=== PATIENT | female | born 1940 | race Caucasian/White ===

== ENCOUNTER → 2023-11-11 10:05 | Outpatient (REF) | payer MEDICARE, OTHER, SELFPAY | LOC: RAD 10:05 | PROVIDERS: ATTENDING PHYSICIAN Family Medicine | DX: M25.551 Pain in right hip (principal) | CPT/HCPCS: 73502 ==

== ENCOUNTER → 2023-11-16 13:24 | Outpatient (REF) | payer MEDICARE, OTHER, SELFPAY | LOC: RAD 13:24 | PROVIDERS: ATTENDING PHYSICIAN Family Medicine | DX: M85.88 Other specified disorders of bone density and structure, other site (principal); S62.101D Fracture of unspecified carpal bone, right wrist, subsequent encounter for fracture with routine healing | CPT/HCPCS: 77080 ==

== ENCOUNTER → 2024-07-17 08:06 | Outpatient (REF) | payer MEDICARE, OTHER, SELFPAY | LOC: RAD 08:06 | PROVIDERS: ATTENDING PHYSICIAN Internal Medicine Rheumatology; FAMILY PHYSICIAN Family Medicine | DX: M54.2 Cervicalgia (principal) | CPT/HCPCS: 72040 ==

== ENCOUNTER 2024-12-13 12:43 | Outpatient (RCR) | payer MEDICARE, OTHER, SELFPAY | END 2024-12-13 23:59 | disposition home or self-care (01) | LOC: RPT 12:43 | PROVIDERS: ATTENDING PHYSICIAN Family Medicine | DX: G89.29 Other chronic pain (principal); M54.2 Cervicalgia; R68.84 Jaw pain | CPT/HCPCS: 97010; 97110; 97140; 97162; 97535 ==

== ENCOUNTER 2024-12-18 12:51 | Outpatient (RCR) | payer MEDICARE, OTHER, SELFPAY | END 2024-12-18 23:59 | disposition home or self-care (01) | LOC: RPT 12:51 | PROVIDERS: ATTENDING PHYSICIAN Family Medicine | DX: G89.29 Other chronic pain (principal); M54.2 Cervicalgia; R68.84 Jaw pain | CPT/HCPCS: 97010; 97110 ==

== ENCOUNTER → 2025-01-13 10:07 | Outpatient (REF) | payer MEDICARE, OTHER, SELFPAY | LOC: RAD 10:07 | PROVIDERS: ATTENDING PHYSICIAN Family Medicine | DX: J32.8 Other chronic sinusitis (principal) | CPT/HCPCS: 70486 ==

== ENCOUNTER 2025-02-15 09:52 | Outpatient (RCR) | payer MEDICARE, OTHER, SELFPAY | END 2025-02-15 23:59 | disposition home or self-care (01) | LOC: RPT 09:52 | PROVIDERS: ATTENDING PHYSICIAN Family Medicine | DX: M54.2 Cervicalgia (principal); R68.84 Jaw pain; G89.29 Other chronic pain | CPT/HCPCS: 97010; 97110; 97112; 97140; 97535 ==

== ENCOUNTER 2025-02-23 10:29 | Outpatient (RCR) | payer MEDICARE, OTHER, SELFPAY | END 2025-02-23 23:59 | disposition home or self-care (01) | LOC: RPT 10:29 | PROVIDERS: ATTENDING PHYSICIAN Family Medicine | DX: M54.2 Cervicalgia (principal); R68.84 Jaw pain; G89.29 Other chronic pain | CPT/HCPCS: 97110; 97112 ==